=== PATIENT | female | born 1975 | race African-American/Black ===

== ENCOUNTER 2021-12-21 22:15 | Emergency (ER) | payer MEDICARE, MEDICAID ==
[~2021-12-21] VITALS: Ht 167.6 cm; Wt 91.0 kg
[2021-12-21] MEDS ORDERED: LIDOCAINE 5% PATCH TOP SCH (22:30)
[2021-12-21] MEDS ORDERED: KETOROLAC 60MG/2ML VIAL IM ONE (22:30)
[2021-12-22] MEDS ORDERED: IBUP-2029 MT (00:58)
[2021-12-22 01:05] VITALS: BP 115/78
== END 2021-12-22 01:06 | disposition home or self-care (01) ==
LOC: ER 22:15
DX: M54.9 Dorsalgia, unspecified (principal); E78.00 Pure hypercholesterolemia, unspecified
CPT/HCPCS: 71045; 81025; 93005; 96372; 99283; J1885